=== PATIENT | male | born 1995 | race Two or more races ===

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

== ENCOUNTER 2017-01-25 00:14 | Emergency (ER) | payer OTHER ==
[2017-01-25 00:30] VITALS: RESP 16
[2017-01-25] MEDS ORDERED: PROPARACAINE 0.5% 15 ML OPHT DROP ONE (00:42)
[2017-01-25] MEDS ORDERED: PROPARACAINE 0.5% 15 ML OPHT DROP OP ONE (00:50)
--- NOTE | 2017-01-25 00:56 | EDPHY ---
H & P Stated Complaint: pt thinks L contact lens is under eyelid, unable to remove HPI/ROS: HPI CHIEF COMPLAINT: Left eye pain, I think my contact stuck in my eye. HISTORY OF PRESENT ILLNESS: This patient is a 21-year-old male otherwise healthy no significant medical history he does wear contacts, he presents emergency room stating that his left eye is hurting him. He states that he thinks the contact stuck in his eye. He denies any vision or headache. He states he was removing his contact 30 minutes ago and now has left eye pain. Past Medical History: No significant medical history Past Surgical History: No significant surgical history Social History: [employer] student, denies drugs alcohol tobacco products Family History: Noncontributory. ROS REVIEW OF SYSTEMS: A comprehensive 10 point review of systems is otherwise negative aside from elements mentioned in the history of present illness. Exam Constitutional triage nursing summary reviewed, vital signs reviewed, awake/ alert. Eyes right eye is normal, left eye: Injected conjunctiva. There was no contact seen on the eye. His lids were everted no contact underneath his lids. He does have injected conjunctiva. On fluorescein exam I did not see any uptake. I do not appreciate corneal abrasion. Globe is soft. EOM movement intact. Pupil equal round react to light. No hyphema. Visual acuity reviewed. HENT normal inspection, atraumatic, moist mucus membranes, no epistaxis, neck supple/ no meningismus, no raccoon eyes. Respiratory clear to auscultation bilaterally, normal breath sounds, no respiratory distress, no wheezing. Cardiovascular rate normal, regular rhythm, no murmur, no edema, distal pulses normal. Gastrointestinal soft, non-tender, no rebound, no guarding, normal bowel sounds, no distension, no pulsatile mass. Genitourinary no CVA tenderness. Musculoskeletal no midline vertebral tenderness, full range of motion, no calf swelling, no tenderness of extremities, no meningismus, good pulses, neurovascularly intact. Skin pink, warm, & dry, no rash, skin atraumatic. Neurologic awake, alert and oriented x 3, AAOx3, moves all 4 extremities equally, motor intact, sensory intact, CN II-XII intact, normal cerebellar, normal vision, normal speech. Psychiatric normal mood/affect. Heme/Lymph/Immune no lymphadenopathy. Differential Diagnosis: Includes but is not limited to in a particular order, retain contact, corneal abrasion, corneal ulcer, conjunctival tear, glaucoma. Traumatic iritis, uveitis Medical Decision Making: This patient had immediate pain relief with proparacaine instilled. There is no fluorescein uptake. Conjunctiva is injected. Most likely has traumatic iritis or small conjunctival tear from his contact. Will be placed on erythromycin ointment. He understands to not wears contact for 2 weeks. He understands follow-up with Ophthalmology tomorrow. Return emergency room if there is any worsening symptoms. Additionally understands do not rub his eye. Ibuprofen for pain control. Source: Patient - Personal History Tetanus Vaccine Date: 2014 - Medical/Surgical History Hx Asthma: No Hx Chronic Respiratory Disease: No Hx Diabetes: No Hx Cardiac Disease: No Hx Renal Disease: No Hx Cirrhosis: No Hx Alcoholism: No Hx HIV/AIDS: No Hx Splenectomy or Spleen Trauma: No Other PMH: DENIES - Social History Smoking Status: Heavy smoker Constitutional: Initial Vital Signs Temperature (C) 36.5 C 01/25/17 00:28 Heart Rate 65 01/25/17 00:28 Respiratory Rate 16 01/25/17 00:28 Blood Pressure 105/58 L 01/25/17 00:28 O2 Sat (%) 95 01/25/17 00:28 O2 Delivery Mode Room Air Allergies/Adverse Reactions: No Known Allergies Allergy (Verified 01/25/17 00:30) Home Medications: Medication Instructions Recorded Erythromycin 0.5% 3.5 gm OP BID #1 opht.oint 01/25/17 Departure - Departure Disposition: Home, Routine, Self-Care Clinical Impression: Traumatic iritis Condition: Good Instructions: Iritis (ED) Additional Instructions: 1. You need to follow up with Ophthalmology tomorrow. 2. Do not rub her eye. 3. Cool compresses to your eye. 4. Ibuprofen for pain. 5. Antibiotics as prescribed. 6. Return emergency room if there is any worsening symptoms questions or concerns. Referrals: NONE *PRIMARY CARE P,. [Primary Care Provider] - As per Instructions Luiz Chun MD [Medical Doctor] - As per Instructions Prescriptions: Erythromycin 0.5% 3.5 gm OP BID #1 opht.oint
[2017-01-25] MEDS ORDERED: FLUORESCEIN SODIUM 1 MG STRIP OP ONE (01:01)
[2017-01-25] MEDS ORDERED: ERYTHROMYCIN 0.5% 1 GM OPHT.OINT EACHEYE ONE (01:13)
[2017-01-25 01:34] VITALS: BP 121/74; PULSE 74; TEMP 97.9; O2SAT 96
== END 2017-01-25 01:34 | disposition home or self-care (01) ==
DX: H20.22 Lens-induced iridocyclitis, left eye (principal); F17.200 Nicotine dependence, unspecified, uncomplicated

== ENCOUNTER 2017-02-23 20:47 | Emergency (ER) | payer OTHER ==
[2017-02-23 20:53] VITALS: RESP 16; TEMP 98.4; O2SAT 96
--- NOTE | 2017-02-23 20:58 | EDPHY ---
H & P Stated Complaint: rectal bleeding Time Seen by Provider: 02/23/17 20:57 HPI/ROS: CHIEF COMPLAINT: [ ] HISTORY OF PRESENT ILLNESS: [Need 4: Location, Duration, Severity, Quality, Context, Timing Modifying Factors, Associated S&S] REVIEW OF SYSTEMS: A comprehensive 10 point review of systems is otherwise negative aside from elements mentioned in the history of present illness. Source: Patient - Personal History Current Tetanus/Diphtheria Vaccine: Yes Tetanus Vaccine Date: 2014 - Medical/Surgical History Hx Asthma: No Hx Chronic Respiratory Disease: No Hx Diabetes: No Hx Cardiac Disease: No Hx Renal Disease: No Hx Cirrhosis: No Hx Alcoholism: No Hx HIV/AIDS: No Hx Splenectomy or Spleen Trauma: No Other PMH: PMHx: DENIES. PSHx: denies - Social History Smoking Status: Heavy smoker - Physical Exam Exam: General Appearance: [Alert, no distress] Eyes: [Pupils equal and round no pallor or injection] ENT, Mouth: [Mucous membranes moist] Respiratory: [There are no retractions, lungs are clear to auscultation] Cardiovascular: [Regular rate and rhythm] Gastrointestinal: [Abdomen is soft and nontender, no masses, bowel sounds normal] Neurological: [A&O, normal motor function, normal sensory exam, normal cranial nerves] Skin: [Warm and dry, no rashes] Musculoskeletal: [Neck is supple nontender] Extremities: [symmetrical, full range of motion] Psychiatric: [Patient is oriented X 3, there is no agitation] Constitutional: Initial Vital Signs Temperature (C) 36.9 C 02/23/17 20:50 Heart Rate 84 02/23/17 20:50 Respiratory Rate 16 02/23/17 20:50 Blood Pressure 120/59 L 02/23/17 20:50 O2 Sat (%) 96 02/23/17 20:50 O2 Delivery Mode Room Air Allergies/Adverse Reactions: No Known Allergies Allergy (Verified 01/25/17 00:30) Home Medications: Medication Instructions Recorded NK [No Known Home Meds] 02/23/17 Departure - Departure Referrals: NONE *PRIMARY CARE P,. [Primary Care Provider] - As per Instructions
--- NOTE | 2017-02-23 21:34 | EDPHY ---
H & P Stated Complaint: rectal bleeding Time Seen by Provider: 02/23/17 20:57 HPI/ROS: HPI: This is a 21-year-old male who presents with Chief Complaint: Rectal bleeding Location: Rectal Quality: Bleeding Duration: 1-3 hours prior to arrival Signs and Symptoms: No abdominal pain, no rectal trauma, no perirectal irritation, no erythema, no nausea, no vomiting, no diarrhea Timing: Sudden Severity: [id number] Context: Patient complains of bright red blood seen on toilet paper while having a bowel movement this evening. Reports that his rectal opening is irritated and taveras. He does not have daily bowel movements. Bessie denies having to strain during bowel movements. He denies any physical trauma to his rectal area. He denies anal intercourse. No history of hemorrhoids. Patient reports a similar incident occurred 2 months ago with 1 bowel movement and self resolved and another similar incident happened 4 months ago and self resolved. Modifying Factors: Comment: ROS: Constitutional: No fever, no chills, no weight loss Eyes: No blurred vision Respiratory: No shortness of breath, no cough Cardiovascular: No chest pain Gastrointestinal: No nausea, no vomiting no diarrhea Genitourinary: No dysuria Extremities: No myalgias Neurologic: No weakness, no numbness Skin: No rashes Hematologic: No bruising, no bleeding CONSTITUTIONAL: Extremely well-appearing teenage male, awake and alert, no obvious distress HEENT: Atraumatic and normocephalic, PERRL, EOMI. Tympanic membranes clear. Oropharynx clear, no exudate and moist pink mucosa. Airway patent. No lymphadenopathy. No meningismus. Cardiovascular: Normal S1/S2, regular rate, regular rhythm, without murmur rub or gallop. PULMONARY/CHEST: Symmetrical and nontender. Clear to auscultation bilaterally. Good air movement. No accessory muscle usage. ABDOMEN: Soft, nondistended, nontender, no rebound, no guarding, no peritoneal signs, no masses or organomegaly. No CVAT. RECTAL: Good sphincter tone, No hemorrhoid, no masses present, soft yellow stool in rectal vault, no perirectal abscess EXTREMITIES: 2/2 pulses, no deformities, no clubbing, no cyanosis or edema. NEUROLOGICAL: no focal neuro deficits. GCS 15. SKIN: Warm and dry, no erythema. no rash. Good capillary refill. Source: Patient Exam Limitations: No limitations - Personal History Current Tetanus/Diphtheria Vaccine: Yes Tetanus Vaccine Date: 2014 - Medical/Surgical History Hx Asthma: No Hx Chronic Respiratory Disease: No Hx Diabetes: No Hx Cardiac Disease: No Hx Renal Disease: No Hx Cirrhosis: No Hx Alcoholism: No Hx HIV/AIDS: No Hx Splenectomy or Spleen Trauma: No Other PMH: PMHx: DENIES. PSHx: denies - Social History Smoking Status: Heavy smoker Constitutional: Initial Vital Signs Temperature (C) 36.9 C 02/23/17 20:50 Heart Rate 84 02/23/17 20:50 Respiratory Rate 16 02/23/17 20:50 Blood Pressure 120/59 L 02/23/17 20:50 O2 Sat (%) 96 02/23/17 20:50 O2 Delivery Mode Room Air Allergies/Adverse Reactions: No Known Allergies Allergy (Verified 01/25/17 00:30) Home Medications: Medication Instructions Recorded NK [No Known Home Meds] 02/23/17 Medical Decision Making ED Course/Re-evaluation: Guaiac trace positive. Patient has a test in the morning is requesting to leave the ER prior to obtaining results of the CBC. He has declined any imaging to further evaluate for diverticulitis/ diverticulosis/perirectal abscess. Suspect constipation, internal hemorrhoids, straining with defecation. Advised to follow up with Gastroenterology for further evaluation. Differential Diagnosis: Differential diagnosis includes constipation, rectal trauma, perirectal irritation, rectal abscess, diverticulitis, hemorrhoids. - Data Points Laboratory Results: 02/23/17 21:16 Stool Occult Bld Scrn POSITIVE H (NEGATIVE) Departure - Departure Disposition: Home, Routine, Self-Care Clinical Impression: Stool guaiac positive Condition: Good Instructions: Rectal Bleeding (ED) Additional Instructions: Drink 6-8 glasses of water daily. Do not strain while having a bowel movement. Avoid constipation. Call GI in the morning to have a follow-up appointment in the next 7-10 days. Referrals: Jose Flores MD [[facility] Primary Care Provider] - As per Instructions
[2017-02-23 22:01] LABS: % IMMATURE GRANULYOCYTES 0.3 % (0.0-1.1); ABSOLUTE IMMATURE GRANULOCYTES 0.02 10^3/uL (0.00-0.10); ADD DIFF? NO; ADD MORPH? NO; ADD SCAN? NO; ATYPICAL LYMPHOCYTE FLAG 0 (0-99); FRAGMENT RBC FLAG 0 (0-99); HEMATOCRIT 45.1 % (40.0-51.0); HEMOGLOBIN 15.7 g/dL (13.7-17.5); LEFT SHIFT FLG 0 (0-99); LIPEMIA HEMOLYSIS FLAG 90 (0-99); MEAN CELL HEMOGLOBIN 29.8 pg (27.9-34.1); MEAN CELL HEMOGLOBIN CONCENTR. 34.8 g/dL (32.4-36.7); MEAN CELL VOLUME 85.7 fL (81.5-99.8); MEAN PLATELET VOLUME 9.1 fL (8.7-11.7); PLATELET CLUMPS FLAG 10 (0-99); PLATELET COUNT 238 10^3/uL (150-400); RED BLOOD CELL COUNT 5.26 10^6/uL (4.40-6.38); RED CELL DISTRIBUTION WIDTH 12.2 % (11.5-15.2)
[2017-02-23 22:03] VITALS: BP 113/55; PULSE 75
== END 2017-02-23 22:03 | disposition home or self-care (01) ==
DX: R19.5 Other fecal abnormalities (principal); F17.200 Nicotine dependence, unspecified, uncomplicated

== ENCOUNTER 2017-05-07 00:40 | Emergency (ER) | payer OTHER ==
[2017-05-07 00:43] VITALS: BP 128/83; PULSE 85; RESP 16; TEMP 97.9; O2SAT 95
[2017-05-07] MEDS ORDERED: IBUPROFEN 600 MG TAB PO ONE (00:50)
--- NOTE | 2017-05-07 00:56 | EDPHY ---
H & P Stated Complaint: L ankle inj at soccer HPI/ROS: HPI CHIEF COMPLAINT: Left ankle injury. HISTORY OF PRESENT ILLNESS: This patient is a 22-year-old male, otherwise healthy no significant medical history presents emergency room with left lateral ankle pain. He was playing soccer this evening. He states he rolled his ankle and developed discomfort pain and swelling. Pain is currently 6/10. He states he was unable to walk on it. Denies any other areas of injury. Additionally portion reports he has had a very mild sore throat for the past week. He is requesting a strep test. Denies trouble swelling. Denies fever. Past Medical History: No medical history Past Surgical History: No surgical history Social History: [employer] student. Denies drugs alcohol tobacco. Family History: Noncontributory. ROS REVIEW OF SYSTEMS: A comprehensive 10 point review of systems is otherwise negative aside from elements mentioned in the history of present illness. Exam Constitutional appears well nontoxic, triage nursing summary reviewed, vital signs reviewed, awake/alert. Eyes normal conjunctivae and sclera, EOMI, PERRLA. HENT normal inspection, atraumatic, moist mucus membranes, no epistaxis, neck supple/ no meningismus, no raccoon eyes. Respiratory clear to auscultation bilaterally, normal breath sounds, no respiratory distress, no wheezing. Cardiovascular rate normal, regular rhythm, no murmur, no edema, distal pulses normal. Gastrointestinal soft, non-tender, no rebound, no guarding, normal bowel sounds, no distension, no pulsatile mass. Genitourinary no CVA tenderness. Musculoskeletal no midline vertebral tenderness, full range of motion, no calf swelling, no tenderness of extremities, no meningismus, good pulses, neurovascularly intact. Left lower extremity: Good distal pulse. Good cap refill. Swelling noted over the lateral malleolus. Mild tender palpation over the lateral malleolus. Full range of motion and neurovascular intact. Skin pink, warm, & dry, no rash, skin atraumatic. Neurologic awake, alert and oriented x 3, AAOx3, moves all 4 extremities equally, motor intact, sensory intact, CN II-XII intact, normal cerebellar, normal vision, normal speech. Psychiatric normal mood/affect. Heme/Lymph/Immune no lymphadenopathy. Differential Diagnosis: Includes but is not limited to in a particular order left ankle sprain, left ankle fracture, ankle fracture dislocation, soft tissue injury. Medical Decision Making: Plan for this patient ibuprofen for pain control. X- ray of the left ankle. Rapid strep. Re-evaluation: X-ray of the left ankle. Reviewed by myself. I do not appreciate acute fracture malalignment. Lateral soft tissue swelling noted. Rapid strep negative. Plan for this patient walking boot and crutches for comfort. Close orthopedic follow-up. Most likely has ankle sprain. Return emergency room if there is worsening symptoms questions or concerns. Patient understands. Understands keep his leg elevated ice it. Supportive care anti-inflammatory pain medicine. Return if worse. Source: Patient - Personal History Current Tetanus/Diphtheria Vaccine: Yes Tetanus Vaccine Date: 2014 - Medical/Surgical History Hx Asthma: No Hx Chronic Respiratory Disease: No Hx Diabetes: No Hx Cardiac Disease: No Hx Renal Disease: No Hx Cirrhosis: No Hx Alcoholism: No Hx HIV/AIDS: No Hx Splenectomy or Spleen Trauma: No Other PMH: PMHx: DENIES. PSHx: denies - Social History Smoking Status: Heavy smoker Constitutional: Initial Vital Signs Temperature (C) 36.6 C 05/07/17 00:41 Heart Rate 85 05/07/17 00:41 Respiratory Rate 16 05/07/17 00:41 Blood Pressure 128/83 H 05/07/17 00:41 O2 Sat (%) 95 05/07/17 00:41 O2 Delivery Mode Room Air Allergies/Adverse Reactions: No Known Allergies Allergy (Verified 05/07/17 00:43) Home Medications: Medication Instructions Recorded NK [No Known Home Meds] 02/23/17 Medical Decision Making - Data Points Laboratory Results: 05/07/17 05/07/17 Unknown 00:55 Group A Strep Screen NEGATIVE (NEGATIVE) Group A Strep DNA Pending Medications Given: Discontinued Medications Ibuprofen (Motrin) 600 mg PO EDNOW ONE Stop: 05/07/17 00:51 Last Admin: 05/07/17 00:51 Dose: 600 mg Departure - Departure Disposition: Home, Routine, Self-Care Clinical Impression: Ankle sprain Qualifiers: Encounter type: initial encounter Involved ligament of ankle: unspecified ligament Laterality: left Qualified Code(s): S93.402A - Sprain of unspecified ligament of left ankle, initial encounter Condition: Good Instructions: Ankle Sprain (ED) Additional Instructions: 1. Ice your ankle. 2. Ibuprofen for pain control. 3. Walking boot for comfort. 4. Crutches for comfort. 5. Follow up with Orthopedics. Referrals: NONE *PRIMARY CARE P,. [Primary Care Provider] - As per Instructions Silvano Shelley MD [Medical Doctor] - As per Instructions
== END 2017-05-07 01:34 | disposition home or self-care (01) ==
DX: S93.402A Sprain of unspecified ligament of left ankle, initial encounter (principal); F17.200 Nicotine dependence, unspecified, uncomplicated; X58.XXXA Exposure to other specified factors, initial encounter; Y99.8 Other external cause status; Y93.66 Activity, soccer
CPT/HCPCS: L4386

== ENCOUNTER 2017-09-28 04:12 | Emergency (ER) | payer OTHER ==
[2017-09-28 04:20] VITALS: BP 106/54
--- NOTE | 2017-09-28 04:46 | EDPHY ---
H & P Stated Complaint: POS FLU, RUNNY NOSE, COUGH, SORE THROAT X 2 DAYS Time Seen by Provider: 09/28/17 04:46 HPI/ROS: HPI CHIEF COMPLAINT: Right ear pain, dry cough, sinus congestion HISTORY OF PRESENT ILLNESS: Patient 22-year-old male, is otherwise healthy no significant medical history presents emergency room with right ear pain and a dry cough. Additionally has sinus congestion. Main complaint right ear pain. No fever. Denies chest pain or shortness of breath. Denies productive cough. Denies vomiting Past Medical History: No significant medical history Past Surgical History: No significant surgical history Social History: Smokes tobacco daily. [employer] student. Family History: Noncontributory. ROS REVIEW OF SYSTEMS: A comprehensive 10 point review of systems is otherwise negative aside from elements mentioned in the history of present illness. Exam Constitutional appears well nontoxic no acute distress triage nursing summary reviewed, vital signs reviewed, awake/alert. Eyes normal conjunctivae and sclera, EOMI, PERRLA. HENT posterior pharynx unremarkable, right TM is erythematous with bulge, left TM clear, normal inspection, atraumatic, moist mucus membranes, no epistaxis, neck supple/ no meningismus, no raccoon eyes. Respiratory clear to auscultation bilaterally, normal breath sounds, no respiratory distress, no wheezing. Cardiovascular rate normal, regular rhythm, no murmur, no edema, distal pulses normal. Gastrointestinal soft, non-tender, no rebound, no guarding, normal bowel sounds, no distension, no pulsatile mass. Genitourinary no CVA tenderness. Musculoskeletal no midline vertebral tenderness, full range of motion, no calf swelling, no tenderness of extremities, no meningismus, good pulses, neurovascularly intact. Skin pink, warm, & dry, no rash, skin atraumatic. Neurologic awake, alert and oriented x 3, AAOx3, moves all 4 extremities equally, motor intact, sensory intact, CN II-XII intact, normal cerebellar, normal vision, normal speech. Psychiatric normal mood/affect. Heme/Lymph/Immune no lymphadenopathy. Differential Diagnosis: Includes but is not limited to in a particular order, viral syndrome, upper respiratory tract infection, sinusitis, otitis media Medical Decision Making: Here in the emergency room this patient appears well nontoxic no acute distress. His right TM is erythematous and bulging. Posterior pharynx unremarkable lungs are clear. Vital signs are stable. Will treat for acute otitis media. I do recommend highly that he stop smoking tobacco. Stays well hydrated drink lots of fluids. Return precautions discussed with the patient. Source: Patient - Personal History Current Tetanus Diphtheria and Acellular Pertussis (TDAP): Yes Tetanus Vaccine Date: 2014 - Medical/Surgical History Hx Asthma: No Hx Chronic Respiratory Disease: No Hx Diabetes: No Hx Cardiac Disease: No Hx Renal Disease: No Hx Cirrhosis: No Hx Alcoholism: No Hx HIV/AIDS: No Hx Splenectomy or Spleen Trauma: No Other PMH: PMHx: DENIES. PSHx: denies - Social History Smoking Status: Heavy smoker Constitutional: Initial Vital Signs Temperature (C) 36.6 C 09/28/17 04:17 Heart Rate 79 09/28/17 04:17 Respiratory Rate 16 09/28/17 04:17 Blood Pressure 106/54 L 09/28/17 04:17 O2 Sat (%) 94 09/28/17 04:17 O2 Delivery Mode Room Air Allergies/Adverse Reactions: No Known Allergies Allergy (Verified 05/07/17 00:43) Home Medications: Medication Instructions Recorded Azithromycin [Zithromax] 250 mg PO DAILY #6 tab 09/28/17 Departure - Departure Disposition: Home, Routine, Self-Care Clinical Impression: Otitis media Qualifiers: Otitis media type: suppurative Chronicity: acute Laterality: right Recurrence: not specified as recurrent Spontaneous tympanic membrane rupture: without spontaneous rupture Qualified Code(s): H66.001 - Acute suppurative otitis media without spontaneous rupture of ear drum, right ear Condition: Good Instructions: Ear Infection (ED) Additional Instructions: 1. Drink lots of fluids stay well-hydrated 2. Stop smoking cigarettes. 3. Antibiotics as prescribed. 4. Return emergency room if worsening symptoms questions or concerns. Referrals: NONE *PRIMARY CARE P,. [Primary Care Provider] - As per Instructions Prescriptions: Azithromycin [Zithromax] 250 mg PO DAILY #6 tab
[2017-09-28] MEDS ORDERED: AZITHROMYCIN 250 MG TAB PO ONE (04:49)
== END 2017-09-28 05:11 | disposition home or self-care (01) ==
DX: H66.001 Acute suppurative otitis media without spontaneous rupture of ear drum, right ear (principal); F17.200 Nicotine dependence, unspecified, uncomplicated

== ENCOUNTER 2018-09-17 04:35 | Emergency (ER) | payer OTHER ==
[2018-09-17 04:38] VITALS: BP 128/60
--- NOTE | 2018-09-17 04:42 | EDPHY ---
H & P Stated Complaint: kicked in R juares duing soccer game, pain, swelling, abrasion, ambulatory Time Seen by Provider: 09/17/18 04:42 HPI/ROS: HPI CHIEF COMPLAINT: Right anterior tibia pain. HISTORY OF PRESENT ILLNESS: Patient is a 23-year-old male, he arrives to the emergency room after was playing soccer, the patient was playing soccer around 1 :30 a.m. And his right anterior juares hit another patient's leg. He now has right anterior tib-fib pain. He is able to ambulate. No significant swelling, abrasion present. He decided come the emergency room as he has increasing pain. Denies any other areas of injury. Past Medical History: Denies medical history Past Surgical History: Denies surgical history Social History: [employer] student. Family History: Noncontributory ROS REVIEW OF SYSTEMS: 10 Systems were reviewed and negative with the exception of the elements mentioned in the history of present illness. Exam Constitutional triage nursing summary reviewed, vital signs reviewed, awake/ alert. Eyes normal conjunctivae and sclera, EOMI, PERRLA. HENT normal inspection, atraumatic, moist mucus membranes, no epistaxis, neck supple/ no meningismus, no raccoon eyes. Respiratory clear to auscultation bilaterally, normal breath sounds, no respiratory distress, no wheezing. Cardiovascular rate normal, regular rhythm, no murmur, no edema, distal pulses normal. Gastrointestinal soft, non-tender, no rebound, no guarding, normal bowel sounds, no distension, no pulsatile mass. Genitourinary no CVA tenderness. Musculoskeletal right lower extremity: Mild tender palpation down the anterior tibial spine. Mid tibia. Small abrasion present. No significant swelling. No crepitus, no compartment syndrome. Distally neurovascular intact good distal pulse, good cap refill. Soft compartments. no midline vertebral tenderness, full range of motion, no calf swelling, no tenderness of extremities, no meningismus, good pulses, neurovascularly intact. Skin pink, warm, & dry, no rash, skin atraumatic. Neurologic awake, alert and oriented x 3, AAOx3, moves all 4 extremities equally, motor intact, sensory intact, CN II-XII intact, normal cerebellar, normal vision, normal speech. Psychiatric normal mood/affect. Heme/Lymph/Immune no lymphadenopathy. Differential Diagnosis: Includes but is not limited to in a particular order [place] tib-fib contusion, bone bruise, fracture, hairline fracture Medical Decision Making: Plan for this patient NSAIDs, ice pack, x-ray of the tib-fib. Re-evaluate Re-evaluation: X-ray of the right tib-fib reviewed negative for acute fracture. Image interpreted by myself. Recommend the patient elevation, ice, anti-inflammatories Return emergency room if worse Source: Patient - Personal History Current Tetanus/Diphtheria Vaccine: Yes Current Tetanus Diphtheria and Acellular Pertussis (TDAP): Yes Tetanus Vaccine Date: 2014 - Medical/Surgical History Hx Asthma: No Hx Chronic Respiratory Disease: No Hx Diabetes: No Hx Cardiac Disease: No Hx Renal Disease: No Hx Cirrhosis: No Hx Alcoholism: No Hx HIV/AIDS: No Hx Splenectomy or Spleen Trauma: No Other PMH: PMHx: DENIES. PSHx: denies - Social History Smoking Status: Heavy smoker Constitutional: Initial Vital Signs Temperature (C) 36.6 C 09/17/18 04:37 Heart Rate 88 09/17/18 04:37 Respiratory Rate 18 09/17/18 04:37 Blood Pressure 128/60 H 09/17/18 04:37 O2 Sat (%) 96 09/17/18 04:37 O2 Delivery Mode Room Air Allergies/Adverse Reactions: No Known Allergies Allergy (Verified 09/17/18 04:37) Home Medications: Medication Instructions Recorded NK [No Known Home Meds] 09/17/18 Departure - Departure Disposition: Home, Routine, Self-Care Clinical Impression: Contusion Condition: Good Instructions: Contusion in Adults (ED), Hematoma (ED) Additional Instructions: 1. Recommend alternating Tylenol and/or Motrin every 6-8 hours for pain. 2. Recommend rest and elevation and ice 3. Return to the emergency room if you have worsening pain questions or concerns. Referrals: NONE *PRIMARY CARE P,. [Primary Care Provider] - As per Instructions
[2018-09-17] MEDS ORDERED: IBUPROFEN 800 MG TAB PO ONE (05:10)
== END 2018-09-17 05:15 | disposition home or self-care (01) ==
DX: S80.11XA Contusion of right lower leg, initial encounter (principal); W51.XXXA Accidental striking against or bumped into by another person, initial encounter; Y93.66 Activity, soccer; Z87.891 Personal history of nicotine dependence